=== PATIENT | female | born 1990 | race Caucasian/White ===

== ENCOUNTER 2017-03-25 21:56 | Outpatient (CLI) | payer MEDICAID ==
[~2017-03-25] VITALS: Ht 152.4 cm; Wt 63.6 kg
[~2017-03-25 21:56] MED LIST: DOCU-144 PO; FER325 PO; PREN-39 PO
[2017-03-25 22:29] VITALS: BP 111/73; PULSE 90; RESP 18
[2017-03-25 22:31] VITALS: Ht 152.4 cm; Wt 63.6 kg
[2017-03-25 23:42] LABS: ADD UMIC NO; UR ASCORBIC ACID 20 mg/dL (NEGATIVE); UR BILIRUBIN (Dip) NEGATIVE (NEGATIVE); UR BLOOD (Dip) NEGATIVE (NEGATIVE); UR CLARITY CLEAR (CLEAR); UR COLOR YELLOW (YELLOW); UR GLUCOSE (Dip) 3+ mg/dL (NEGATIVE); UR KETONES (Dip) NEGATIVE (NEGATIVE); UR LEUKOCYTE ESTERASE (Dip) NEGATIVE Leu/ul (NEGATIVE); UR NITRITE (Dip) NEGATIVE (NEGATIVE); UR SPECIFIC GRAVITY (Dip) 1.015 (1.003-1.030); UR TOTAL PROTEIN (Dip) NEGATIVE (NEGATIVE); UR UROBILINOGEN (Dip) NEGATIVE (NEGATIVE)
--- NOTE | 2017-03-26 02:34 | PN ---
Triage Information Date/Time Reason for visit: Abd/pelvic pain Weeks of Gestation 36 weeks /Para Diabetes: none Hypertention: none Objective Vital Signs Date Time Temp Pulse Resp B/P Pulse Ox O2 Delivery O2 Flow Rate FiO2 03/25/17 22:29 97.7 90 18 111/73 Room Air Heart Rate: 120's Heart Rate Comments Category I Contractions: None Results/Medications Results 24 hrs Laboratory Tests Test 03/25/17 22:15 Urine Color YELLOW Urine Clarity CLEAR Urine pH 6.0 Urine Specific [place] 1.015 Urine Ketones NEGATIVE Urine Nitrite NEGATIVE Urine Bilirubin NEGATIVE Urine Urobilinogen NEGATIVE Urine Leukocyte Esterase NEGATIVE Urine Hemoglobin NEGATIVE Urine Glucose 3+ H Urine Total Protein NEGATIVE Imaging Results BPP 8/8 EFW normal Disposition: Discharge Assessment/Plan No sign of labor. Follow up in clinic for 3 hour GTT ROMIE HAMPTON MD Mar 26, 2017 02:34
--- NOTE | 2017-03-26 03:04 | TRIAGE ---
OB Triage Datetime Report Generated by CPN: 03/26/2017 03:04 Datetime: 03/26/2017 02:28 Labor Evaluation Frequency: x2 Monitor Mode: External Duration (sec)2399: 120 Quality: Mild Pattern: Normal: <= 5 Contractions in 10 Minutes Resting Tone [place]: Relaxed Heart Rate FHR Baseline Rate: 125 Monitor Mode: External US Variability: Moderate 6-25 bpm Accelerations: 15X15 Decelerations: None Category: Category I Datetime: 03/26/2017 02:00 Labor Evaluation Frequency: x1 Monitor Mode: External Duration (sec)2399: 120 Quality: Mild Pattern: Normal: <= 5 Contractions in 10 Minutes Resting Tone [place]: Relaxed Heart Rate FHR Baseline Rate: 125 Monitor Mode: External US Variability: Moderate 6-25 bpm Accelerations: 15X15 Decelerations: Variable (Annotations: x1 for 20 seconds) Category: Category II Datetime: 03/26/2017 01:00 Labor Evaluation Frequency: x1 Monitor Mode: External Duration (sec)2399: 70 Quality: Mild Pattern: Normal: <= 5 Contractions in 10 Minutes Resting Tone [place]: Relaxed Heart Rate FHR Baseline Rate: 130 Monitor Mode: External US Variability: Moderate 6-25 bpm Accelerations: 15X15 Decelerations: None Category: Category I Datetime: 03/26/2017 00:00 Labor Evaluation Frequency: NONE Monitor Mode: External Resting Tone [place]: Relaxed Heart Rate FHR Baseline Rate: 130 Monitor Mode: External US Variability: Moderate 6-25 bpm Accelerations: 15X15 Decelerations: None Category: Category I Datetime: 03/25/2017 23:00 Labor Evaluation Frequency: x2 Monitor Mode: External Duration (sec)2399: 60-90 Quality: Mild Pattern: Normal: <= 5 Contractions in 10 Minutes Resting Tone [place]: Relaxed Heart Rate FHR Baseline Rate: 135 Monitor Mode: External US Variability: Moderate 6-25 bpm Accelerations: 15X15 Decelerations: None Category: Category I Datetime: 03/25/2017 22:22 Stage of : OB Triage Assessment Type: Triage Maternal Assessment Level of Consciousness: Fully Conscious DTR's/Clonus: DTRs 2+; No Clonus Headache: Denies Blurred Vision: No Respiratory Effort: Unlabored; Regular Rhythm; Equal Expansion Breath Sounds, Left: Clear and Equal Breath Sounds, Right: Clear and Equal Nausea/Vomiting: Denies RUQ Epigastric Pain: Denies Lower Extremities Edema: None Degree: None Upper Extremities Edema: Bilateral Upper Extremities (Annotations: Per pt. None noted by RN) Facial Edema: Per pt, nose area and mouth Temperature Route: Oral Fall Risk Assessment History of Falling: (0) No Secondary Diagnosis: (0) No Ambulatory Aid: (0) Bedrest/Nurse Assist IV Therapy: (0) No Gait: (0) Normal/Bedrest/Immobile Mental Status: (0) Oriented to Own Ability Fall Score: 0 Fall Risk Score Definition: No Risk: No action required Pain Assessment Pain Scale: 7 Pain Presence: Constant Pain Type: Sharp Pain Location: Abdomen Pain Assessment Comments: Pt states the pain is more when she walks. 11/21 Datetime: 03/25/2017 22:18 Time of Arrival: 03/25/2017 21:48 EGA: 36.5 Arrived By: Wheelchair Arrived From: Home Chief Complaint: Pelvic pressure Movement: Present Contractions: Denies/Absent Rupture of Membranes: Denies Vaginal Bleeding: None Vaginal Discharge: Denies Recent Sexual Intercouse: Denies Abdominal Trauma: Not Applicable Patient Complaints: Other Additional Patient Complaints: Swollen hands, legs and face. Time Provider Notified: 03/25/2017 23:15 Provider Notified: Dr. Sandoval Initial Plan: [facility]
== END 2017-03-26 02:48 | disposition home or self-care (01) ==
LOC: OBT 21:56 → L-D 21:58 → OBT 03-26 02:48
PROVIDERS: ATTEND Obstetrics & Gynecology
DX: O26.893 Other specified pregnancy related conditions, third trimester (principal); Z3A.36 36 weeks gestation of pregnancy; R10.2 Pelvic and perineal pain
CPT/HCPCS: 76816; 81003; Z7500; G0463

== ENCOUNTER 2017-04-08 11:30 | Inpatient (IN) | END 2017-04-11 15:45 | disposition home or self-care (01) | DRG 766 ==

== ENCOUNTER 2017-07-18 22:26 | Emergency (ER) | END 2017-07-19 03:04 | disposition home or self-care (01) ==

== ENCOUNTER 2018-04-14 13:38 | Emergency (ER) | payer MEDICAID, OTHER ==
[~2018-04-14] VITALS: Wt 50.0 kg
[2018-04-14 13:50] VITALS: BP 116/59; PULSE 80; RESP 20
--- NOTE | 2018-04-14 14:11 | ERD ---
ER Documentation Chief Complaint Chief Complaint vaginal discharge, cramping HPI 27-year-old female, presents to the emergency department, complaining of 4 days with watery, grayish malodorous vaginal discharge, associated with pelvic discomfort. The patient has had multiple episodes in the past of bacterial vaginosis and she thinks that this is a recurrent episode. She denies fevers, no chills, no urinary symptoms, no history of STI's. ROS All systems reviewed and are negative except as per history of present illness. Medications Home Meds Active Scripts Fluconazole* (Diflucan*) 150 Mg Tablet, 150 MG PO ONCE, #1 TAB Prov:REINA OLGUIN MD 04/14/18 Metronidazole (Metronidazole Gel) 0.75% - 70GM Gel.w.appl, 1 APPFUL VAGINAL DAILY for 7 Days, #1 TUB Prov:REINA OLGUIN MD 04/14/18 Docusate Sodium* (Colace*) 100 Mg Capsule, 100 MG PO TID, #30 CAP Prov:KYLE GUPTA PA-C 07/31/15 Ferrous Sulfate* (Ferrous Sulfate*) 325 Mg Tabec, 325 MG PO DAILY, #30 TAB Prov:KYLE GUPTA PA-C 07/31/15 Reported Medications Vits W-Ca,Fe,Fa(<1MG) ( Vitamins) 1 Tab Tablet, 1 TAB PO DAILY 10/23/13 Allergies Allergies: Coded Allergies: No Known Allergy (Unverified , 03/25/17) PMhx/Soc History of Surgery: Yes (cs x2) Anesthesia Reaction: No Hx Neurological Disorder: No Hx Respiratory Disorders: No Hx Cardiac Disorders: No Hx Psychiatric Problems: No Hx Miscellaneous Medical Probl: No Hx Alcohol Use: No Hx Substance Use: No Hx Tobacco Use: No Physical Exam Vitals Vital Signs Date Temp Pulse Resp B/P (MAP) Pulse Ox O2 O2 Flow FiO2 Time Delivery Rate 04/14/18 97.6 80 20 116/59 99 13:50 (78) Physical Exam Const: No acute distress Head: Atraumatic Eyes: Normal Conjunctiva ENT: Normal External Ears, Nose and Mouth. Neck: Full range of motion. No meningismus. Resp: Clear to auscultation bilaterally Cardio: Regular rate and rhythm, no murmurs Abd: Soft, non tender, non distended. Normal bowel sounds : Deferred by patient. Skin: No petechiae or rashes Back: No midline or flank tenderness Ext: No cyanosis, or edema Neur: Awake and alert Psych: Normal Mood and Affect Results 24 hrs Laboratory Tests Test 04/14/18 14:25 04/14/18 14:27 Bedside Urine pH (LAB) 5.5 Bedside Urine Protein (LAB) Negative Bedside Urine Glucose (UA) Negative Bedside Urine Ketones (LAB) Negative Bedside Urine Blood Trace-intact Bedside Urine Nitrite (LAB) Negative Bedside Urine Leukocyte Esterase (L Negative POC Beta HCG, Qualitative NEGATIVE Procedures/MDM Vital signs stable. Differential diagnosis considered include bacterial vaginosis, yeast infection, HSV, sexually transmitted infection like gonorrhea or chlamydia. Low suspicion for pelvic inflammatory disease. During the ED course the patient remained stable, no new complaints. Clinical impression discussed with the patient who agrees with management. The patient is stable to be treated outpatient and will be discharged home with a Rx for metronidazole gel, some side effects of prescribed medications (headache, rash, nausea, vomiting, diarrhea, drowsiness, interactions with other medications) were reviewed. Follow up with the primary care provider in the next 48h has been recommended. If symptoms persist, worsen or new symptoms develop, then patient should return to the ED immediately. Instructions explained and given directly by me to the patient with acknowledgment and demonstrated understanding. Disclaimer: Inadvertent spelling and grammatical errors are likely due to EHR/dictation software use and do not reflect on the overall quality of patient care. Also, please note that the electronic time recorded on this note does not necessarily reflect the actual time of the patient encounter. Departure Diagnosis: Primary Impression: Bacterial vaginosis Condition: Stable Additional Instructions: Thank you very much for allowing us to participate in your care. Your health and safety is our top priority at [facility]. Call your primary care doctor TOMORROW for an appointment during the next 2-4 days and bring all the information and medications prescribed. Have prescriptions filled and follow precisely the directions on the label. If the symptoms get worse and your provider is unavailable, return to the Emergency Department immediately. REINA OLGUIN MD Apr 14, 2018 14:11
[2018-04-14] MEDS ORDERED: METR70GE4 VAGINAL (14:30)
[2018-04-14] MEDS ORDERED: FLUC150T PO (14:30)
== END 2018-04-14 14:41 | disposition home or self-care (01) ==
LOC: FTE 13:38
DX: N76.0 Acute vaginitis (principal)
CPT/HCPCS: 81003; 81025; Z7502; 99283